=== PATIENT | male | born 1950 | race Two or more races ===

== ENCOUNTER 2022-11-19 10:00 | Observation (INO) | payer OTHER, MEDICARE ==
[2022-11-15 09:37] LABS: Absolute Lymphocytes (CBC) 1.9 K/uL (0.7-4.9); Hematocrit 38.1 % (39.6-49.0); Lymphocytes % 37.2 % (15.3-44.8); MCV 88.6 fL (80-100); MPV 9.4 fL (7.6-11.3)
[2022-11-15 09:43] LABS: Protime INR 0.91
[2022-11-15 09:57] LABS: Specific Gravity 1.026 (1.005-1.030); Urine Bilirubin NEGATIVE (Negative); Urine Blood Negative (Negative); Urine Clarity Clear (Clear); Urine Color Light-Yellow (Yellow); Urine Glucose NEGATIVE (Negative); Urine Protein NEGATIVE (Negative); Urine Urobilinogen Normal (Normal); Urine pH 6.5 (5.0-7.0)
[2022-11-15 10:09] LABS: Albumin 4.1 g/dL (3.4-5.0); Bilirubin Total 0.4 mg/dL (0.2-1.0); Potassium 4.4 mmol/L (3.5-5.1); Protein, Total 7.6 g/dL (6.4-8.2)
[2022-11-18 14:02] LABS: SARS-CoV-2 Antigen Rapid Res Negative (Negative)
[2022-11-19] MEDS ORDERED: CEFAZOLIN SODIUM 2 GM/VIAL ONE (10:41)
[2022-11-19] MEDS ORDERED: CELECOXIB 100 MG CAPSULE ONE (10:41)
[2022-11-19] MEDS ORDERED: Oxycodone HCl/Acetaminophen 1 TAB TAB ONE (10:42)
[2022-11-19] MEDS ORDERED: SCOPOLAMINE HYDROBROMIDE PATCH TD ONE (10:42)
[2022-11-19] MEDS ORDERED: GABAPENTIN 100 MG CAP ONE (10:42)
[2022-11-19] MEDS ORDERED: Ringers Lactate 1,000 ML IV ONE ×2 (10:43→16:50)
[2022-11-19] MEDS ORDERED: ACETAMINOPHEN 500 MG TAB ONE (10:43)
[2022-11-19] MEDS ORDERED: TRANEXAMIC ACID 1,000 MG/10 ML VIAL IV ONE (11:36)
[2022-11-19] MEDS ORDERED: dexAMETHasone 10 MG/ML VIAL ONE ×2 (11:42→15:29)
[2022-11-19] MEDS ORDERED: LIDOCAINE 1% MPF 5 ML VIAL ONE (11:42)
[2022-11-19] MEDS ORDERED: FENTANYL CITR 100 MCG/2 ML ONE (11:43)
[2022-11-19] MEDS ORDERED: EPINEPHRINE/PF 1 MG/ML AMP ONE ×2 (11:43→11:48)
[2022-11-19] MEDS ORDERED: MIDAZOLAM HCL 2 MG/2 ML INJ ONE (11:43)
[2022-11-19] MEDS ORDERED: BUPIVACAINE 0.25% PF 30 ML VIAL ONE (11:43)
[2022-11-19] MEDS ORDERED: HYDROMORPHONE HCL 1 MG/ML INJ ONE (12:59)
[2022-11-19] MEDS ORDERED: LIDOCAINE 2% MPF 5 ML VIAL ONE (13:56)
[2022-11-19] MEDS ORDERED: propofoL 200 MG/20 ML VIAL IV ONE (14:02)
[2022-11-19] MEDS ORDERED: KETAMINE HCL 500 MG/5 ML VIAL ONE (14:27)
[2022-11-19] MEDS ORDERED: NS 0.9% VIAL 10 ML ONE (14:40)
[2022-11-19] MEDS ORDERED: KETOROLAC 30 MG/ML INJ ONE (15:29)
[2022-11-19] MEDS ORDERED: ONDANSETRON 4 MG/2 ML VIAL ONE (15:29)
--- NOTE | 2022-11-19 16:41 | P.BOP ---
Preoperative diagnosis: left knee DJD Postoperative diagnosis: same Primary procedure: Left TKA Estimated blood loss: 100ccs Anesthesia: General Complications: None Transferred to: Recovery Room Condition: Good
[2022-11-19] MEDS ORDERED: ONDANSETRON 4 MG/2 ML VIAL IV PRN (16:42)
[2022-11-19] MEDS ORDERED: DOCUSATE NA 100 MG CAP PO PRN (16:42)
[2022-11-19] MEDS ORDERED: CEFAZOLIN 1 GM in NA CHLORIDE 0.9% 50 ML IVPB SCH (17:00)
--- OUTSIDE RECORDS SUMMARY | 2022-11-19 17:18 | XMS REPORT | Continuity of Care Document ---
:1950 Author Organization [facility] t Address [address] [place] [address] Care Team Providers Name Role Phone Fili LOZADA, Cam Primary Care Physician [phone] Junior Flor Attending Clinician Unavailable KRISTINA NUGENT Attending Clinician Unavailable MD KRISTINA NUGENT Attending Clinician Unavailable SHAMAR BONILLA Attending Clinician Unavailable KRISTINA NUGENT Admitting Clinician Unavailable MD KRISTINA NUGENT Admitting Clinician Unavailable Payers Payer Name Policy Type Policy Number Effective Date Expiration Date S ource Problems Condition Condition Condition Status Onset Resolution Last Treating Co mments Source Name Details Category Date Date Treatment Clinician Date Coronary Coronary Disease Active 2020-10 Meth[facility] di artery artery 10-16 st disease disease 00:00: [facility] involving involving [facility] coronary coronary artery artery without without angina angina pectoris pectoris Allergies, Adverse Reactions, Alerts This patient has no known allergies or adverse reactions. Social History Social Habit Start Date Stop Date Quantity Comments Source Tobacco use and 2021-08-16 2021-08-16 Smokeless tobacco [facility] exposure 00:00:00 00:00:00 non-user Hospital Sex Assigned At [birth year] [facility] Smoking Status Start Date Stop Date Source Never smoked tobacco [facility] Medications Ordered Filled Start Stop Current Ordering Indication Dosage Frequency Signature Comments Components Source Medication Medication Date Date Medication? Clinician (SIG) Name Name PARoxetine 2020-10 Yes 10mg QD Take 10 mg M ethodi (PAXIL) 10 1-[address] MG tablet 12:04: every Hospita 00 morning. l rosuvastati 2020-10 Yes 20mg QD Take 20 mg Method[facility] n (CRESTOR) 1-[address] 20 mg 12:04: daily. Hospita tablet 00 l aspirin 2020-10 Yes 81mg QD Take 81 mg Meth doc (ECOTRIN) 1-[address] 81 MG 12:04: daily. Hospita enteric 00 l coated tablet loratadine 2020-10 Yes 10mg QD Take 10 mg M ethodi (CLARITIN) [address] 10 mg 12:04: daily. Hospita tablet 00 l ticagrelor 2020-10 Yes 90mg Q.5D Take 1 Metho di (BRILINTA) 1-12 tablet (90 st 90 mg 00:00: mg total) Hospita tablet 00 by mouth 2 l (two) times a day. Immunizations Ordered Immunization Filled Immunization Date Status Commen ts [facility]:00 [facility] Procedures This patient has no known procedures. Plan of Care Planned Activity Planned Date Details Comments Source Future Scheduled 2022-11-03 Hepatitis C screening [facility] Test 07:37:01 (procedure) [code = 764863377] Future Scheduled 2022-11-03 COLONOSCOPY SCREENING [facility] Test 07:37:01 [code = COLONOSCOPY SCREENING] Future Scheduled 2022-11-03 SHINGLES VACCINES (1 [facility] Test 07:37:01 of 2) [code = SHINGLES VACCINES (1 of 2)] Future Scheduled 2022-11-03 65+ [facility]OCOCCAL [facility] 07:37:01 VACCINE (1 - PCV) [code = 65+ PNEUMOCOCCAL VACCINE (1 - PCV)] Future Scheduled 2022-11-03 COVID-19 VACCINE (4 - [facility] Test 07:37:01 Booster for Moderna series) [code = COVID-19 VACCINE (4 - Booster for Moderna series)] Future Scheduled 2022-11-03 INFLUENZA VACCINE [facility] Test 07:37:01 [code = INFLUENZA VACCINE] Encounters Start End Encounter Admission Attending Care Care Encounter Source Date/Time Date/Time Type Type Clinicians Facility Department ID 2021-10-10 2021-10-10 Outpatient Elective [place], [facility] [id number] [facility] 17:46:00 17:46:00 Junior 83 2021-08-16 2021-08-17 Outpatient KRISTINA NUGENT [facility] [id number] [place] 00:00:00 00:00:[address] 2021-08-14 2021-08-14 Outpatient KRISTINA NUGNET [facility] [id number] [place] 00:00:00 00:00:[address] 2021-08-08 2021-08-08 Outpatient CHAD, [facility] [id number] [place] 00:00:00 00:00:00 NADIM [address] 2021-08-08 2021-08-08 Outpatient CHAD, [facility] [id number] [place] 00:00:00 00:00:[address] NADIM [address] Results Test Description Test Time Test Comments Results Result Comments Source SARS-CoV-2 (COVID-19) RNA [Presence] in Respiratory sp ecimen by 2021-08-14 20:20:30 ALEX with probe detection Test Item Value Reference Range Interpretation Comme nts SARS-CoV-2 (COVID-19) RNA [Presence] in Respiratory Not detected No t-Detected specimen by ALEX with probe detection (test code = 29712-4) Whether patient is employed in a healthcare setting (test code = 52398-1) Whether the patient has symptoms related to condition of interest (test code = 56060-1) Patient was hospitalized because of this condition (test code = 84124-8) Whether the patient was admitted to intensive care unit (ICU) for condition of interest (test code = 97267-8) Whether patient resides in a congregate care setting (test code = 88911-6) MEREDITH LOGAN
[2022-11-19 17:48] VITALS: O2SAT 98
--- NOTE | 2022-11-19 17:53 | OP ---
Date of Procedure: 11/19/2022 Surgeon: Kranthi Corona MD Preoperative Diagnosis: Severe left knee arthritis. Postoperative Diagnosis: Severe left knee arthritis. Procedure: Left total knee arthroplasty using the Biomet Vanguard system. Estimated Blood Loss: 100 cc. Complications: There were no complications. Indications For Operation: Mr. Balderas is a patient, who has previously undergone arthroscopy with evidence of arthritis as well as other arthritic treatments and x-rays do demonstrate arthritic haywood es, which appeared to be [id number] on the medial aspect. He says that he understands everything a s presented at this time and opts for total knee arthroplasty. Risks, benefits, and alternatives of procedure have been discussed with him. Description Of Procedure: The patient was taken to the operating room and placed in supine position. General anesthesia was easily obtained by Anesthesia staff. Following this, a well-padded tourniqu et was placed on the superior left thigh. Left lower extremity was then prepped and draped in the [facility] sterile fashion for the procedure. The leg was then elevated and gently exsanguinated with an Ac e wrap and the tourniquet was raised. A standard anterior incision was taken down carefully through the skin and soft tissue. Meticulous hemostasis being maintained using Bovie electrocautery. The ap propriate layers easily identified and the extensor mechanism was exposed. A paula was made to the calvillo perior medial pole of patella and a standard medial parapatellar arthrotomy was then performed with l iberation approximately 60 cc of rather normal-appearing synovial fluid. Following this, the anterio r and posterior cruciate as well as the medial and lateral menisci are excised as well as some fat pa d to allow for visualization. An intramedullary guide was then placed and the distal femur was cut. After this, it was then sized to a size 72.5. This 72.5 cutting block was then placed. The remaind er of the femoral cuts were performed. There was found to be no notching of the femur and appeared t o be appropriately sized. After this, attention was then turned to the tibia and was cut in standard fashion with a normal degree of slope. After this, the femur was then placed with the trial tibial tray and this comes to full extension and appears to be balanced in flexion and extension. The miller la was then calipered and cut and drilled for placement of the patella and a trial patella was then p laced. The knee was brought through full range of motion and appears to glide very easily with no si gn of subluxation of the patella. After this, the trial implants were removed and the box was then c ut in a standard fashion for the PS component. After this had been performed, a bone plug was placed and the tibia was punched and prepared for final implantation. The final patella, femur and tibia w ere then placed using the trial polyethylene with removal of any unsupported cement and appeared to b e well placed. After these were allowed to harden, any unsupported cement was removed. The wound wa s copiously irrigated and tracking of the patella was again tried and appears to track normally. It appears to be well balanced in flexion and extension and the trial polyethylene was removed and repla ernesto with the final polyethylene with a locking bar. The wound was copiously irrigated and the fascia was closed in a watertight fashion using heavy Ethibond sutures. It was again irrigated and the ski n was closed using 2-0 Vicryl sutures followed by kayden. The patient was then placed in a well-pad ded sterile dressing, awakened, and taken to the recovery room. SENTHIL Voice ID: [id number] Report ID: [id number]
--- NOTE | 2022-11-19 18:32 | P.CNS ---
Date of Consult: 11/19/22 Reason for Consult: Medical management Requesting Physician: Kranthi Corona Chief Complaint: Left knee pain History of Present Illness: 72-year-old male with history of CAD with previous stent placement, macular degeneration, arthritis of left knee was admitted to the hospital under observation after left total knee replacement, hospital service consulted for medical management. Allergies No Known Allergies Allergy (Verified 11/19/22 11:28) Home Medications: Aspirin [Low Dose Aspirin EC] 81 mg PO DAILY 11/15/22 Loratadine [Claritin] 10 mg PO DAILY 11/15/22 PARoxetine HCL [Paxil] 10 mg PO DAILY 11/15/22 Rosuvastatin Calcium 20 mg PO DAILY 11/15/22 Ticagrelor [Brilinta] 90 mg PO BID 11/15/22 Vit C/E/Zn/Coppr/Lutein/Zeaxan [Preservision Areds 2 Softgel] 1 each PO BID 11/15/22 - Past Medical/Surgical History Diabetic: No -: coronary artery disease -: macular degeneration -: arthritis -: removal basal cell carcinoma -: left knee arthroscopy Psychosocial/ Personal History: Patient lives at home with his - Family History Father Medical History: Heart disease, Hypertension, Other (see notes) Notes: from heart attack Mother Medical History: Hypertension, Other (see notes) Notes: high cholesterol - Social History Alcohol use: Yes CD- Drugs: No Caffeine use: Yes Place of Residence: Home Review of Systems 10-point ROS is otherwise unremarkable Musculoskeletal: Other (Left lower extremity pain status post total left knee replacement today) Physical Examination Temp Pulse Resp BP Pulse Ox 97.7 F 77 16 149/79 H 11/19/22 17:46 11/19/22 17:46 11/19/22 17:46 11/19/22 17:46 General: Alert, In no apparent distress, Oriented x3 HEENT: Atraumatic, PERRLA, Mucous membr. moist/pink, EOMI, Sclerae nonicteric Neck: Supple Respiratory: Normal air movement Cardiovascular: No edema Capillary refill: <2 Seconds Gastrointestinal: Normal bowel sounds, Non-distended Musculoskeletal: No tenderness Integumentary: No rashes Neurological: Normal speech, Normal tone, Normal affect Conclusions/Impression: Assessment: Left knee arthritis status post left total knee replacement CAD with previous stent Macular degeneration Plan: Left knee arthritis status post left total knee replacement Management per Ortho. Patient recovering well at this time, alert eating dinner. Reports mild pain left lower extremity. Neurovascularly intact. As needed pain medication ordered. CAD with previous stent Patient was taking aspirin, Plavix prior to procedure. Orthopedics plan on discharging on Xarelto. Hold aspirin, Plavix allow Ortho to clear for antiplatelet. Follow-up with PCP. Macular degeneration Outpatient management. DVT PPX: Lovenox Code status: Full Critical Care: No Time Spent Managing Pts care (In Minutes): 25
[2022-11-19] MEDS: HYDROCODONE/APAP 7.5/325 MG TAB PO PRN (20:52)
[2022-11-19 21:39] VITALS: BMI 28.7
[2022-11-20] MEDS: CEFAZOLIN 1 GM in NA CHLORIDE 0.9% 50 ML IVPB SCH ×2 (01:00→08:30)
[2022-11-20 04:10] LABS: Hematocrit 35.2 % (39.6-49.0)
[2022-11-20] MEDS: ENOXAPARIN 30 MG/0.3 ML SQ SCH ×2 (05:58→08:23)
[2022-11-20] MEDS: HYDROCODONE/APAP 7.5/325 MG TAB PO PRN (08:28)
[2022-11-20] MEDS ORDERED: PARoxetine HCL 10 MG TAB PO SCH (09:00)
[2022-11-20] MEDS ORDERED: ROSUVASTATIN 10 MG TAB PO SCH (09:00)
[2022-11-20] MEDS ORDERED: HOME MED 1 EA UNK (Rosuvastatin Calcium [Rosuvastatin Calcium] 20 MG Tablet) PO SCH (09:00)
[2022-11-20] MEDS ORDERED: LORATADINE 10 MG TAB PO SCH (09:00)
[2022-11-20 12:20] VITALS: BP 133/68; TEMP 98.6
--- NOTE | 2022-11-20 22:14 | P.PN ---
Date of Service: 11/20/22 Subjective: doing well post-op ambulated with PT breathing comfortably pain tolerable wanting to go home ROS: A complete review of systems was performed and is negative except as mentioned above Physical Exam: Gen: NAD, AOx3 HEENT: normal conjunctiva, sclera anicteric CV: regular rate & rhythm, no edema Pulm: non-labored respirations, clear bilaterally MSK:L knee with mild discomfort Skin: dressing c/d/i Neuro: normal speech, normal affect, moves all extremities vitals reviewed Problem List Left knee arthritis status post left total knee replacement CAD with previous stent Macular degeneration s/p total knee replacement by Dr. Corona doing well post-operatively had a drop in hgb, but repeat H/H stable. vitals stable unclear if patient's zinc plate cutter wanted brilinta + xarelto, or aspirin + xarelto for now advised aspirin +xarelto f/u with zinc plate cutter / call office today/tomorrow for further discussion
== END 2022-11-20 13:43 | disposition home or self-care (01) ==
LOC: OR 10:00 → 2ND 16:42
PROVIDERS: ADMIT Orthopaedic Surgery; ATTEND Orthopaedic Surgery
PROC: 0SRD069 Replacement of Left Knee Joint with Oxidized Zirconium on Polyethylene Synthetic Substitute, Cemented, Open Approach (ICD-10-PCS; principal; 2022-11-19 12:00)
DX: M17.12 Unilateral primary osteoarthritis, left knee (principal); I25.10 Atherosclerotic heart disease of native coronary artery without angina pectoris; Z20.822 Contact with and (suspected) exposure to COVID-19
CPT/HCPCS: 85025; 36415 ×3; 86900; 86850; 85610; 86901; 88305; 88311; 85730; 85018; 85014; 81003; 80053; 97110; 97116; 97161; 97530; 87811; 27447; J2704; J0171 ×2; J2001 ×2; J1650 ×2; J2250; J3010; J1100 ×2; A4216; J1170; J7120 ×2; J2405; J0690 ×2; G0378; G0379

== ENCOUNTER → 2023-10-29 | Emergency (ER) | payer OTHER, MEDICARE ==
[~2023-10-29] MED LIST: DIAZEPAM 10 MG/2 ML INJ SYRINGE ONE; METOCLOPRAMIDE 10 MG/2mL INJ ONE; NA CHLORIDE 0.9% 1,000 ML ONE; ONDANSETRON 4 MG/2 ML VIAL ONE
[2023-10-29 20:46] LABS: Absolute Lymphocytes (CBC) 2.8 K/uL (0.7-4.9); Hematocrit 32.2 % (39.6-49.0); Lymphocytes % 38.4 % (15.3-44.8); MCV 76.2 fL (80-100); MPV 8.7 fL (7.6-11.3); Platelets 281 thou/uL (152-406); RBC Red Blood Cell Count 4.23 M/uL (4.33-5.43)
[2023-10-29 20:49] LABS: Protime INR 1.07
[2023-10-29 20:56] LABS: SARS-CoV-2 Antigen Rapid Res Negative (Negative)
[2023-10-29 20:59] LABS: ALT/SGPT 28 U/L (16-61); AST/SGOT 17 U/L (15-37); Albumin 4.1 g/dL (3.4-5.0); Alkaline Phosphatase 52 U/L (45-117); BUN Blood Urea Nitrogen 23 mg/dL (7-18); Bicarbonate 23 mEq/L (21-32); Bilirubin Direct 0.1 mg/dL (0-0.2); Bilirubin Indirect, Calculated 0.3 mg/dL (0.2-0.8); Bilirubin Total 0.4 mg/dL (0.2-1.0); Glomerular Filtration Rate 62 ml/min (=/>90); Glucose Level 158 mg/dL (74-106); Lipase 29 U/L (13-75); Magnesium 2.2 mg/dL (1.6-2.4); NT PRO-BNP 74 pg/mL (<125); Potassium 4.1 mEq/L (3.5-5.1); Protein, Total 7.7 g/dL (6.4-8.2); Sodium Level 137 mEq/L (136-145); Troponin High Sensitivity 3.7 pg/mL (<58.9)
--- NOTE | 2023-10-29 21:06 | RAD REPORT ---
EXAM DESCRIPTION: RAD - Chest Single View - 10/29/2023 9:00 pm CLINICAL HISTORY: CHEST PAIN Chest pain. COMPARISON: Chest Pa And Lat (2 Views) dated 10/08/2023; Chest Pa And Lat (2 Views) dated 10/24/2022 FINDINGS: Portable technique limits examination quality. The lungs are grossly clear. The heart is normal in size. No displaced fractures. IMPRESSION: No acute intrathoracic process suspected.
[2023-10-29 21:08] LABS: C-Reactive Protein < 2.90 mg/L (<3.00)
--- NOTE | 2023-10-29 21:28 | RAD REPORT ---
EXAM DESCRIPTION: CT - Head Brain Wo Cont - 10/29/2023 9:22 pm CLINICAL HISTORY: DIZZINESS Headache, drowsiness, dizziness, vomiting COMPARISON: No comparisons TECHNIQUE: All CT scans are performed using dose optimization technique as appropriate and may inclu de automated exposure control or mA/KV adjustment according to patient size. FINDINGS: No intracranial hemorrhage, hydrocephalus or extra-axial fluid collection.Mild generalized brain atrophy.No areas of brain edema or evidence of midline shift. The paranasal sinuses and mastoids are clear. The calvarium is intact. IMPRESSION: No acute intracranial abnormality.
--- NOTE | 2023-10-30 00:11 | EDPHYS ---
Physician Documentation [facility] Name: Rubio Balderas Age: 73 yrs Sex: Male : 1950 Arrival Date: 10/29/2023 Time: 20:09 Bed 4 Private MD: ED Physician Ernesto Mcclain HPI: 10/29 20:15 This 73 yrs old [place] Male presents to ER via Unassigned with complaints of sp4 Dizziness and vomiting . 10/30 00:04 Very pleasant 73-year-old male presents with acute onset of vomiting and dizziness over sp4 the vertigo starting 3 days ago. The vomiting has intensified. Patient denied any chest pain or shortness of breath. . Historical: - Allergies: 10/29 20:18 No Known Allergies; vc1 - PSHx: 20:18 cardiac stent; vc1 - Immunization history:: Adult Immunizations unknown. - Social history:: Smoking status: unknown. - Family history:: not pertinent. ROS: 10/30 00:04 Constitutional: Negative for fever, chills, and weight loss, positive for nausea, sp4 vomiting, dizziness, vertigo All other systems are negative, Exam: 00:04 Constitutional: This is a well developed, well nourished patient who is awake, alert, sp4 and acutely vomiting on arrival. There is bilateral horizontal nystagmus Head/Face: Normocephalic, atraumatic. Eyes: Pupils equal round and reactive to light, extra-ocular motions intact. Lids and lashes normal. Conjunctiva and sclera are not injected. Cornea within normal limits. Periorbital areas with no swelling, redness, or edema. Positive horizontal nystagmus ENT: Nares patent. No nasal discharge, no septal abnormalities noted. Tympanic membranes are normal and external auditory canals are clear. Oropharynx with no redness, swelling, or masses, exudates, or evidence of obstruction, uvula midline. Mucous membranes moist. Neck: Trachea midline, no thyromegaly or masses palpated, and no cervical lymphadenopathy. Supple, full range of motion without nuchal rigidity, or vertebral point tenderness. Chest/axilla: Normal chest wall appearance and motion. Nontender with no deformity. No lesions are appreciated. Cardiovascular: Regular rate and rhythm with a normal S1 and S2. No gallops, murmurs, or rubs. Normal PMI, no JVD. No pulse deficits. Respiratory: Lungs have equal breath sounds bilaterally, clear to auscultation and percussion. No rales, rhonchi or wheezes noted. No increased work of breathing, no retractions or nasal flaring. Abdomen/GI: Soft, non-tender, with normal bowel sounds. No distension or tympany. No guarding or rebound. No evidence of tenderness throughout. Back: No spinal tenderness. No costovertebral tenderness. Skin: Warm, dry with normal turgor. Normal color with no rashes, no lesions, and no evidence of cellulitis. MS/ Extremity: Pulses equal, no cyanosis. Neurovascular intact. Full, normal range of motion. Neuro: Awake and alert, GCS 15, oriented to person, place, time, and situation. Cranial nerves II-XII grossly intact. Motor strength 5/5 in all extremities. Sensory grossly intact. Psych: Awake, alert, with orientation to person, place and time. Behavior, mood, and affect are within normal limits 00:09 ECG was reviewed by the Attending Physician. EKG time 2018 Vital Signs: 10/29 20:16 BP 171 / 89; Pulse 79; Resp 15; Temp 98.1; Pulse Ox 98% ; Weight 98.43 kg; Height 6 ft. vc1 1 in. ; Pain 0/10; 21:00 BP 148 / 84; Pulse 74; Resp 14; Pulse Ox 93% on R/A; tm6 22:00 BP 155 / 92; Pulse 77; Resp 13; Pulse Ox 96% ; tm6 22:30 BP 150 / 88; Pulse 77; Pulse Ox 97% on R/A; km8 23:00 BP 151 / 90; Pulse 68; Pulse Ox 98% on R/A; km8 23:30 BP 158 / 87; Pulse 67; Pulse Ox 97% on R/A; km8 10/30 00:00 BP 157 / 90; Pulse 68; Resp 16; Pulse Ox 99% on R/A; km8 10/29 20:16 Body Mass Index 28.63 (98.43 kg, 185.42 cm) vc1 10/29 20:16 Pain Scale: Adult vc1 MDM: 10/29 21:24 Patient medically screened. sp4 10/30 00:08 Data reviewed: vital signs, nurses notes, lab test result(s), EKG, radiologic studies. [facility] ED course: EXAM DESCRIPTION: CT - Head Brain Wo Cont - 10/29/2023 9:22 pm CLINICAL HISTORY: DIZZINESS Headache, drowsiness, dizziness, vomiting COMPARISON: No comparisons TECHNIQUE: All CT scans are performed using dose optimization technique as appropriate and may include automated exposure control or mA/KV adjustment according to patient size. FINDINGS: No intracranial hemorrhage, hydrocephalus or extra-axial fluid collection.Mild generalized brain atrophy.No areas of brain edema or evidence of midline shift. The paranasal sinuses and mastoids are clear. The calvarium is intact. IMPRESSION: No acute intracranial abnormality.. 10/29 20:16 Order name: Basic Metabolic Panel; Complete Time: 22:58 [facility] 10/29 20:16 Order name: CBC with Diff; Complete Time: 22:58 [facility] 10/29 20:16 Order name: LFT's; Complete Time: 22:58 [facility] 10/29 20:16 Order name: Magnesium; Complete Time: 22:58 [facility] 10/29 20:16 Order name: NT PRO-BNP; Complete Time: 22:58 [facility] 10/29 20:16 Order name: PT-INR; Complete Time: 22:58 [facility] 10/29 20:16 Order name: Troponin HS; Complete Time: 22:58 [facility] 10/29 20:17 Order name: CRP; Complete Time: 22:58 [facility] 10/29 20:17 Order name: Lipase; Complete Time: 22:58 [facility] 10/29 20:17 Order name: SARS RAPID; Complete Time: 22:58 [facility] 10/29 20:17 Order name: Influenza Screen (a \T\ B); Complete Time: 22:58 [facility] 10/29 22:59 Order name: Troponin High Sensitivity; Complete Time: 23:58 [facility] 10/29 20:16 Order name: XRAY Chest (1 view); Complete Time: 22:58 [facility] 10/29 20:16 Order name: CT Head Brain wo Cont; Complete Time: 22:58 [facility] 10/29 20:16 Order name: EKG; Complete Time: 20:17 [facility] 10/29 20:16 Order name: Cardiac monitoring; Complete Time: 20:35 [facility] 10/29 20:16 Order name: EKG - Nurse/Tech; Complete Time: 21:02 [facility] 10/29 20:16 Order name: IV Saline Lock; Complete Time: 20:35 sp4 10/29 20:16 Order name: Labs collected and sent; Complete Time: 20:35 sp4 10/29 20:16 Order name: O2 Per Protocol; Complete Time: 20:35 sp4 10/29 20:16 Order name: O2 Sat Monitoring; Complete Time: 20:35 sp4 EC:09 Rate is 77 beats/min. Rhythm is regular, Normal Sinus Rhythm. QRS [place] is Normal. [place] sp4 interval is normal. QRS interval is normal. QT interval is normal. No Q waves. T waves are Normal. No ST changes noted. Clinical impression: Normal ECG. Interpreted by me. Reviewed by me. Administered Medications: 10/29 20:50 Drug: NS 0.9% IV 1000 ml IV at 125 ml/hr continuous Route: IV; Rate: 125 ml/hr; Site: [facility] right antecubital; 10/30 00:30 Follow up: IV Status: Order to discontinue infusion; IV Intake: 300ml [facility] 10/29 20:50 Drug: Ondansetron IVP 8 mg IVP once; over 2 minutes Route: IVP; Site: right antecubital;[facility] 22:33 Follow up: Response: No adverse reaction [facility] 20:52 Drug: metoCLOPramide IVP 10 mg IVP once; over 1 to 2 minutes Route: IVP; Site: right nc1 antecubital; 22:33 Follow up: Response: No adverse reaction [facility] 20:54 Drug: Diazepam IVP 5 mg IVP once Route: IVP; Site: right antecubital; [facility] 22:33 Follow up: Response: No adverse reaction [facility] Disposition Summary: 10/30/23 00:11 Discharge Ordered Notes: Bed rest for 3 days

Clear liquid diet for 12 hours Location: Home sp4 Problem: new sp4 Symptoms: have improved sp4 Condition: Stable sp4 Diagnosis - Other peripheral vertigo, bilateral sp4 - Acute peripheral positional vertigo, nausea and vomiting sp4 Followup: sp4 - With: Private Physician - When: 7 - 10 days - Reason: Recheck today's complaints Discharge Instructions: - Discharge Summary Sheet sp4 - Vertigo, Bpgl-gt-[place] sp4 Forms: - Patient Portal Instructions sp4 Prescriptions: - ondansetron 4 mg Oral Tablet,disintegrating - take 1 tablet ORAL route every 6 hours PRN nausea; 30 tablet; Refills: 0, sp4 Product Selection Permitted - Valium 5 mg Oral tablet - take 1 tablet ORAL route every 8 hours As needed PRN vertigo; 20 tablet; sp4 Refills: 0, Product Selection Permitted Signatures: Dispatcher [employer] Domitila Larose RN RN vc1 Ernesto Mcclain MD MD sp4 Maura Zheng RN RN [id number] Jessi Ornelas RN [id number]
--- NOTE | 2023-10-30 00:11 | ER ---
Nurse's Notes [facility] Name: Rubio Balderas Age: 73 yrs Sex: Male : 1950 Arrival Date: 10/29/2023 Time: 20:09 Bed 4 Private MD: Diagnosis: Other peripheral vertigo, bilateral;Acute peripheral positional vertigo, nausea and vomiting Presentation: 10/29 20:16 Chief complaint: Patient states: I've been feeling dizzy for 2 days now everything is vc1 spinning and I keep vomiting. Coronavirus screen: Client denies travel out of the [place] in the last 14 days. vomiting. Client presents with at least one sign or symptom that may indicate coronavirus-19. Ebola Screen: Patient negative for fever greater than or equal to 101.5 degrees Fahrenheit, and additional compatible Ebola Virus Disease symptoms Patient denies exposure to infectious person. Patient denies travel to an Ebola-affected area in the 21 days before illness onset. No symptoms or risks identified at this time. Initial Sepsis Screen: Does the patient meet any 2 criteria? No. Patient's initial sepsis screen is negative. Does the patient have a suspected source of infection? No. Patient's initial sepsis screen is negative. Risk Assessment: Do you want to hurt yourself or someone else? Patient reports no desire to harm self or others. Onset of symptoms was October 27, 2023. 20:16 Method Of Arrival: Wheelchair vc1 20:16 Acuity: FIE 3 vc1 Triage Assessment: 20:18 General: Appears distressed, ill, Behavior is cooperative. Pain: Denies pain. EENT: No vc1 deficits noted. No signs and/or symptoms were reported regarding the EENT system. Neuro: Yepez Agitation-Sedation Scale (RASS): 0 - Alert and Calm Level of Consciousness is awake, alert, obeys commands, lethargic, Oriented to person, place, time, situation, Appropriate for age Moves all extremities. Gait is steady, Reports dizziness. Cardiovascular: Reports diaphoresis, lightheadedness, nausea, vomiting. Respiratory: Airway is patent Respiratory effort is even, unlabored, Respiratory pattern is regular, symmetrical. GI: Pt is actively vomiting undigested food, Reports nausea, vomiting. : No deficits noted. No signs and/or symptoms were reported regarding the genitourinary system. Derm: Skin is diaphoretic, Skin temperature is cool. Musculoskeletal: No deficits noted. No signs and/or symptoms reported regarding the musculoskeletal system. Historical: - Allergies: 20:18 No Known Allergies; vc1 - PSHx: 20:18 cardiac stent; vc1 - Immunization history:: Adult Immunizations unknown. - Social history:: Smoking status: unknown. - Family history:: not pertinent. Screenin:25 Abuse screen: Denies threats or abuse. Nutritional screening: No deficits noted. vc1 Tuberculosis screening: No symptoms or risk factors identified. 20:35 [facility] ED Fall Risk Assessment (Adult) Score/Fall Risk Level 0 - 2 = Low Risk nj1 Oriented to surroundings, Maintained a safe environment, Provided non-skid footwear, Hourly rounding (assess needs \T\ fall precautionary measures) done, Used ambulatory aids as needed (educated on \T\ assisted with). Assessment: 20:30 General: Appears in no apparent distress. uncomfortable, Behavior is calm, cooperative, nj1 appropriate for age. 20:30 Pain: Denies pain. Neuro: Level of Consciousness is awake, alert, obeys commands, nj1 Oriented to person, place, time, situation. Neuro: Reports dizziness, Intermittent since Friday, worse today. Cardiovascular: Patient's skin is warm and dry. Rhythm is regular. Respiratory: Airway is patent Respiratory effort is even, unlabored. GI: Reports nausea. Derm: Skin is pale. 22:33 Reassessment: Patient appears in no apparent distress at this time. Patient and/or km8 family updated on plan of care and expected duration. Pain level reassessed. Patient is alert, oriented x 3, equal unlabored respirations, skin warm/dry/pink. Patient states symptoms have improved. Vital Signs: 20:16 BP 171 / 89; Pulse 79; Resp 15; Temp 98.1; Pulse Ox 98% ; Weight 98.43 kg; Height 6 ft. vc1 1 in. ; Pain 0/10; 21:00 BP 148 / 84; Pulse 74; Resp 14; Pulse Ox 93% on R/A; tm6 22:00 BP 155 / 92; Pulse 77; Resp 13; Pulse Ox 96% ; tm6 22:30 BP 150 / 88; Pulse 77; Pulse Ox 97% on R/A; km8 23:00 BP 151 / 90; Pulse 68; Pulse Ox 98% on R/A; 8 23:30 BP 158 / 87; Pulse 67; Pulse Ox 97% on R/A; 8 10/30 00:00 BP 157 / 90; Pulse 68; Resp 16; Pulse Ox 99% on R/A; 8 10/29 20:16 Body Mass Index 28.63 (98.43 kg, 185.42 cm) 1 10/29 20:16 Pain Scale: Adult vc1 ED Course: 10/29 20:15 Patient arrived in ED. kmf 20:15 Ernesto Mcclain MD is Attending Physician. sp4 20:18 Triage completed. vc1 20:24 Arm band placed on left wrist. vc1 20:25 Patient has correct armband on for positive identification. Bed in low position. Call vc1 light in reach. Client placed on continuous cardiac and pulse oximetry monitoring. NIBP monitoring applied. 20:30 Inserted saline lock: 20 gauge in right antecubital area, using aseptic technique. nj1 Blood collected. 20:33 Maura Zheng, RN is Primary Nurse. nj1 20:34 Provided Education on: call light, fall precautions. nj1 21:02 XRAY Chest (1 view) In Process Unspecified. EDMS 21:22 Primary Nurse role handed off by Maura Zheng RN [facility] 21:22 Jessi Ornelas, RAMBO is Primary Nurse. km8 21:24 CT Head Brain wo Cont In Process Unspecified. EDMS 22:33 No provider procedures requiring assistance completed. [facility] 10/30 00:30 IV discontinued, intact, bleeding controlled, No redness/swelling at site. Pressure [facility] dressing applied. Administered Medications: 10/29 20:50 Drug: NS 0.9% IV 1000 ml IV at 125 ml/hr continuous Route: IV; Rate: 125 ml/hr; Site: nj right antecubital; 10/30 00:30 Follow up: IV Status: Order to discontinue infusion; IV Intake: 300ml [facility] 10/29 20:50 Drug: Ondansetron IVP 8 mg IVP once; over 2 minutes Route: IVP; Site: right antecubital;[facility] 22:33 Follow up: Response: No adverse reaction [facility] 20:52 Drug: metoCLOPramide IVP 10 mg IVP once; over 1 to 2 minutes Route: IVP; Site: right nj1 antecubital; 22:33 Follow up: Response: No adverse reaction km8 20:54 Drug: Diazepam IVP 5 mg IVP once Route: IVP; Site: right antecubital; nj1 22:33 Follow up: Response: No adverse reaction km8 Medication: 20:26 VIS not applicable for this client. vc1 Intake: 10/30 00:30 IV: 300ml; Total: 300ml. km8 Outcome: 00:11 Discharge ordered by . shirin 00:30 Discharged to home via wheelchair, with significant other, km8 00:30 Condition: good 00:30 Discharge instructions given to patient, significant other, Instructed on discharge instructions, follow up and referral plans. medication usage, Demonstrated understanding of instructions, follow-up care, medications, Prescriptions given X 2, 00:31 Patient left the ED. km8 Signatures: Dispatcher [employer] EDMS Domitila Thomson RN RN vc1 Ernesto Mcclain MD MD sp4 Maura Zheng RN RN nj1 Estefania Ortiz [facility] Jessi Ornelas RN RN km8 Mally Mason RN RN tm6 Corrections: (The following items were deleted from the chart) 00:31 00:30 Discharge instructions given to patient, significant other, Instructed on km8 discharge instructions, follow up and referral plans. medication usage, Demonstrated understanding of instructions, follow-up care, medications, Prescriptions given X 3, km8
[2023-10-30 03:24] VITALS: TEMP 98.1
[2023-10-30 03:36] VITALS: BP 157/90; O2SAT 99
--- NOTE | 2023-10-30 16:26 | EKG ---
Test Date: 2023-10-29 Test Time: 20:19:21 Health Professional: [place] MEASUREMENT RESULTS: Intervals: Rate: 77 OK: 204 QRSD: 88 QT: 398 QTc: 450 [place]: P: 46 OK: 204 QRS: 0 T: 28 INTERPRETIVE STATEMENTS: Normal sinus rhythm Normal ECG No previous ECG available for comparison Electronically Signed On 10-30-23 16:25:11 CONTROL OFFICER MANAGER by Mahin Mccauley
== END ==
LOC: ER 20:09
DX: H81.393 Other peripheral vertigo, bilateral (principal); Z95.818 Presence of other cardiac implants and grafts; Z11.52 Encounter for screening for COVID-19
CPT/HCPCS: 93005; 85025; 80048; 36415; 83735; 85610; 80076; 84484 ×2; 83690; 83880; 86140; 87804 ×2; 70450; 71045; 87811; J2765; J3360; J2405; J7030

== ENCOUNTER 2023-12-16 08:00 | Day surgery (SDC) | payer OTHER, MEDICARE ==
[2023-12-15 13:29] LABS: Absolute Eosinophils 0.2 K/uL (0-0.5); Absolute Lymphocytes (CBC) 1.9 K/uL (0.7-4.9); Absolute Monocytes 0.5 K/uL (0.1-1.3); Absolute Neutrophil 2.6 K/uL (1.8-8.0); Eosinophils % 3.3 % (0-4.4); Hematocrit 32.9 % (39.6-49.0); Hemoglobin 10.6 g/dL (13.6-17.9); Lymphocytes % 36.9 % (15.3-44.8); MCH 24.5 pg (27.0-35.0); MCHC 32.3 g/dL (32.0-36.0); MCV 75.7 fL (80-100); MPV 8.7 fL (7.6-11.3); Monocytes % 9.5 % (3.3-12.3); Neutrophils % 49.3 % (41.7-73.7); Platelets 301 thou/uL (152-406); RBC Red Blood Cell Count 4.35 M/uL (4.33-5.43); Red Cell Distribution Width 19.4 % (12.1-15.2)
[2023-12-15 13:34] LABS: PT Prothrombin Time 11.5 SECONDS (9.5-12.5); PTT, Activated Partial Thromb 32.2 SECONDS (24.3-36.9); Protime INR 1.05
[2023-12-15 13:43] LABS: Anion Gap 9.3 mEq/L (5.0-15.0); Potassium 4.3 mEq/L (3.5-5.1)
[2023-12-16] MEDS: NA CHLORIDE 0.9% 500 ML ONE (08:34)
[2023-12-16] MEDS ORDERED: LIDOCAINE 1% 20 ML MDV ONE (09:06)
[2023-12-16] MEDS ORDERED: VERAPAMIL HCL 10 MG/4 ML VIAL IV ONE (09:06)
[2023-12-16] MEDS ORDERED: HEPA 1000U/500MLS 2,000 UNIT/1,000 ML BAG IV ONE (09:06)
[2023-12-16] MEDS ORDERED: HEPARIN 5000 UNIT/ML 1 ML VIAL ONE (09:07)
[2023-12-16] MEDS ORDERED: FENTANYL CITR 100 MCG/2 ML ONE (10:31)
[2023-12-16] MEDS ORDERED: MIDAZOLAM HCL 2 MG/2 ML INJ ONE (10:31)
[2023-12-16] MEDS ORDERED: HEPARIN 10,000 UNIT/10 ML VIAL IV ONE (10:58)
[2023-12-16 11:45] VITALS: TEMP 97.2
[2023-12-16 18:04] VITALS: BP 128/66; O2SAT 100
== END 2023-12-16 13:57 | disposition home or self-care (01) ==
LOC: CCL 08:00
PROVIDERS: ATTEND Internal Medicine Interventional Cardiology
DX: I25.10 Atherosclerotic heart disease of native coronary artery without angina pectoris (principal); I10 Essential (primary) hypertension; Z95.5 Presence of coronary angioplasty implant and graft; Z82.49 Family history of ischemic heart disease and other diseases of the circulatory system
CPT/HCPCS: 85025; 80048; 36415; 83721; 85610; 85730; 93458; 76937; C1893; Q9966; J1644; J2001; J2250; J3010; J7040; 99152; 99153

== ENCOUNTER 2025-07-05 05:10 | Day surgery (SDC) | payer OTHER, MEDICARE ==
[2025-06-30 10:00] LABS: Absolute Lymphocytes (CBC) 1.7 K/uL (0.7-4.9); Hematocrit 41.1 % (39.6-49.0); Hemoglobin 14.2 g/dL (13.6-17.9); MCH 34.8 pg (27.0-35.0); MCHC 34.6 g/dL (32.0-36.0); MCV 100.6 fL (80-100); MPV 9.1 fL (7.6-11.3); Nucleated RBC Absolute Count 0.0 (0-0); Nucleated Red Blood Cells % 0.1 % (0-0); RBC Red Blood Cell Count 4.09 M/uL (4.33-5.43); White Blood Count 5.20 thou/uL (4.3-10.9)
[2025-06-30 10:07] LABS: Sqamous Epithelial <5 /HPF (None Seen); Urine Micro Reflex YN NO BILL MICROSCOPIC
[2025-06-30 10:13] LABS: PT Prothrombin Time 12.0 SECONDS (10-13.0); Protime INR 1.06
[2025-06-30 10:14] LABS: PTT, Activated Partial Thromb 31.5 SECONDS (27.2-37.4)
[2025-06-30 10:21] LABS: ALT/SGPT 27.0 U/L (16-61); AST/SGOT 16.0 U/L (15-37); Albumin 3.6 g/dL (3.4-5.0); Albumin/Globulin Ratio 1.0 (1.1-1.8); Alkaline Phosphatase 49.0 U/L (45-117); Anion Gap 6.1 mEq/L (5.0-15.0); BUN Blood Urea Nitrogen 24.0 mg/dL (7-18); Globulin 3.6 g/dL (2.3-3.5); Glucose Level 92.0 mg/dL (74-106); Potassium 4.1 mEq/L (3.5-5.1)
[2025-07-05] MEDS: Ringers Lactate 1,000 ML IV ONE (05:43)
[2025-07-05] MEDS: ACETAMINOPHEN 500 MG TAB ONE (05:49)
[2025-07-05] MEDS: GABAPENTIN 100 MG CAP ONE (05:49)
[2025-07-05] MEDS: Oxycodone HCl/Acetaminophen 5/325 MG TAB ONE (05:52)
[2025-07-05] MEDS: CELECOXIB 100 MG CAPSULE ONE (05:52)
[2025-07-05] MEDS: TRANEXAMIC ACID 1,000 MG/10 ML VIAL IV ONE (06:19)
[2025-07-05] MEDS: LIDOCAINE 1% MPF 5 ML VIAL ONE ×2 (06:20→06:34)
[2025-07-05] MEDS: BUPIVACAINE 0.25% PF 30 ML VIAL ONE ×2 (06:20→06:34)
[2025-07-05] MEDS: MIDAZOLAM HCL 2 MG/2 ML INJ ONE ×2 (06:21→06:33)
[2025-07-05] MEDS: FENTANYL CITR 100 MCG/2 ML ONE ×2 (06:21→06:33)
[2025-07-05] MEDS: EPINEPHRINE 1 MG/ML VIAL ONE ×2 (06:22→06:33)
[2025-07-05] MEDS: LIDOCAINE 2% MPF 5 ML VIAL ONE (06:33)
[2025-07-05] MEDS: DEXMEDETOMIDINE HCL 200 MCG/2 ML VIAL ONE (06:33)
[2025-07-05] MEDS: MAGNESIUM SULFATE 1 gm IVPB 1 GM/100 ML BAG IV ONE (06:34)
[2025-07-05] MEDS ORDERED: EPHEDRINE SULF 50 MG/ML VIAL ONE (07:12)
[2025-07-05] MEDS: CEFAZOLIN SODIUM 2 GM/VIAL ONE (07:12)
[2025-07-05] MEDS ORDERED: KETAMINE HCL IN 0.9 % NACL 50 MG/5 ML SYRINGE IV ONE (07:17)
[2025-07-05] MEDS ORDERED: GLYCOPYRROLATE 0.2 MG/ML SYR ONE (07:17)
[2025-07-05] MEDS ORDERED: ONDANSETRON 4 MG/2 ML VIAL IV PRN (09:30)
--- NOTE | 2025-07-05 09:30 | P.BOP ---
Preoperative diagnosis: right knee arthritis Postoperative diagnosis: same Primary procedure: right total knee arthoplasty Estimated blood loss: 100ccs Anesthesia: General Complications: None Transferred to: Recovery Room Condition: Good
[2025-07-05] MEDS: HYDROMORPHONE HCL 0.5 MG/0.5 ML INJ ONE (10:28)
[2025-07-05 10:54] VITALS: BMI 30.4
--- NOTE | 2025-07-05 11:28 | P.CNS ---
Date of Consult: 07/05/25 Reason for Consult: Medical management Requesting Physician: Krantih Corona Chief Complaint: Right knee pain History of Present Illness: 75-year-old male with history of hypertension, hyperlipidemia, CAD presented to the hospital for outpatient right total knee replacement. He is status post right total knee replacement today on 07/05 and doing well postoperatively. Hospitalist team is been consulted for management of his medical conditions during his hospitalization. Allergies No Known Allergies Allergy (Verified 07/05/25 05:37) Home Medications: Aspirin [Low Dose Aspirin EC] 81 mg PO DAILY 11/15/22 PARoxetine HCL [Paxil] 10 mg PO DAILY 11/15/22 Rosuvastatin Calcium 20 mg PO DAILY 11/15/22 Bacillus Coagulans/Inulin [Align Dualbiotic Gummy] 1 each PO DAILY 06/30/25 Carvedilol [Coreg] 3.125 mg PO BID 06/30/25 Ferrous Gluconate [Iron] 65 mg PO SEECOM 06/30/25 Loratadine [Claritin] 10 mg PO DAILY 06/30/25 Vit B2/Niacin/B6/B12/Dexpanth [B Complex Sublingual Liquid] 1 drop PO DAILY 06/30/25 Vit C/E/Zn/Coppr/Lutein/Zeaxan [Preservision Areds 2 Chew Tab] 1 each PO BID 06/30/25 - Past Medical/Surgical History Diabetic: No -: high cholesterol -: hypertension -: arthritis -: left total knee -: heart stent Psychosocial/ Personal History: Patient lives at home with his - Family History Father Medical History: Heart disease, Hypertension, Other (see notes) Notes: from heart attack Mother Medical History: Hypertension, Other (see notes) Notes: high cholesterol - Social History Smoking Status: Unknown if ever smoked Alcohol use: Yes CD- Drugs: No Caffeine use: Yes Place of Residence: Home Review of Systems 10-point ROS is otherwise unremarkable Musculoskeletal: Leg Pain (Right knee pain) Physical Examination Temp Pulse Resp BP Pulse Ox 97.2 F 77 16 142/85 H 07/05/25 10:38 07/05/25 10:38 07/05/25 10:38 07/05/25 10:38 General: Alert, In no apparent distress, Oriented x3 HEENT: Atraumatic, PERRLA, EOMI Neck: Supple, 2+ carotid pulse no bruit, No LAD Respiratory: Clear to auscultation bilaterally, Normal air movement Cardiovascular: Regular rate/rhythm, Normal S1 S2 Gastrointestinal: Normal bowel sounds, No tenderness Musculoskeletal: Other (Right knee dressing in place) Integumentary: No rashes Neurological: Normal gait, Normal speech, Normal affect Conclusions/Impression: Assessment: Right knee arthritis status post total right knee replacement 07/05 History of CAD Hypertension Hyperlipidemia Plan: Right knee arthritis status post total right knee replacement 07/05 As needed pain medications PT per Ortho History of CAD Hypertension Hyperlipidemia Continue home medications when verified DVT PPX:Per ortho Code status: Full code Critical Care: No Time Spent Managing Pts care (In Minutes): 45
--- NOTE | 2025-07-05 14:30 | OP ---
Date of Procedure: 07/05/2025 Surgeon: Kranthi Corona MD Preoperative Diagnosis: Right knee arthritis. Postoperative Diagnosis: Right knee arthritis. Procedure: Right total knee arthroplasty using the Persona System by [employer]. Estimated Blood Loss: 100 cc. Complications: There were no complications. Specimen: Pathology specimens sent are from bony fragments. Indications For Operation: Mr. Balderas is a 75-year-old gentleman who has previously had a left tot al knee arthroplasty done by me and has done well. He has pain in his right knee, which is unrelieve d with conservative measures including injection, medications, activity modifications, and opts for t otal knee arthroplasty. Risks, benefits, and alternatives of procedure had been discussed with him a nd he states he understands things as presented and wishes to proceed. Description Of Procedure: The patient was given a block in the holding area and then he was taken to the operating room, where general anesthesia was easily obtained by the Anesthesia staff. Following this, a well-padded tourniquet was placed on superior right thigh. Right lower extremity was then p repped and draped in the usual sterile fashion for the procedure. The leg was then elevated and gent ly exsanguinated using an Eloy wrap. The knee was bent. Tourniquet was raised. A standard anterior incision was then taken down carefully through skin and soft tissues. Meticulous hemostasis being ma intained using Bovie electrocautery. This leads down to the appropriate level, which was then exploi adrien to expose the extensor mechanism. The superior and medial border of the patella was then marked and a standard medial parapatellar arthrotomy was then performed. There was removal of some fat pad as well as the medial and lateral menisci. The knee was examined. He does have [id number] changes on the medial side as well as some degenerative changes of the patella. An intramedullary alignment guide was then placed and distal femur was cut. After this was sized and the cutting block was plac ed, the remainder of the femoral cuts were made without difficulty. Attention was then turned to the tibia. The anterior and posterior cruciate ligaments had been resected and the tibia was then cut i n standard fashion. It was then measured. A trial femur was placed as well as trial tibia with size 10 poly, and the knee was brought to full extension, appears to be balanced in both flexion and exte nsion, comes to full extension and full flexion as well. The patella appears to glide well. The pat chaim was then calipered and cut and sized. The pegs were drilled and trial patella was placed. It w as brought through full range of motion. The patella appears to glide excellently. After this, the lugs were drilled for the femur and the trial components were removed. The bony surfaces were preppe d for cementation. After this, all of the components were then cemented with the trial tibia polyeth ylene and the knee was then placed in extension while cement hardened. Care was taken to remove any unsupported cement and ensuring that these components are well seated. After this was brought throug h full range of motion, the patella appeared to glide well. It appeared to be stable in both varus a nd valgus and balanced in both flexion and extension. Decision was made to continue with a size 10 f inal polyethylene. The wound was irrigated and the final polyethylene was placed and locked carefull y in place. After this was again irrigated and brought through full range of motion, patella appears to glide well, appears to be balanced again. After this, the extensor mechanism was repaired in a w atertight fashion using Ethibond sutures. This was followed by closure of the skin with Vicryl follo wed by closure of the skin with kayden. The patient was placed in a well-padded sterile dressing, a wakened, and taken to recovery room in good condition. No complications. SE/MODL Voice ID: [id number] Report ID: [id number]
[2025-07-05] MEDS: CEFAZOLIN 1 GM in NA CHLORIDE 0.9% 50 ML IVPB SCH (16:56)
[2025-07-05] MEDS: ROSUVASTATIN 10 MG TAB PO SCH (21:46)
[2025-07-06] MEDS: ENOXAPARIN 30 MG/0.3 ML SQ SCH (05:42)
[2025-07-06 06:51] LABS: Hematocrit 38.7 % (39.6-49.0); Hemoglobin 13.4 g/dL (13.6-17.9)
[2025-07-06] MEDS ORDERED: HOME MED 1 EA UNK (Rosuvastatin Calcium [Rosuvastatin Calcium] 20 MG Tablet) PO SCH (09:00)
--- NOTE | 2025-07-06 09:47 | P.PN ---
Date of Service: 07/06/25 Subjective: No acute events overnight No further episodes nausea/vomiting Working well with PT, still requiring assistance ROS: 10 point ROS as noted above, otherwise negative Physical exam GEN: Alert, oriented, NAD HEENT: Normal conjunctiva, sclera anicteric CV: Regular rate and rhythm, no edema Pulm: Nonlabored respirations on room air ABD: Soft, nontender, nondistended MSK: No joint tenderness Integumentary: No rashes Neuro: Normal speech, normal affect Vitals reviewed Assessment: Right knee arthritis status post total right knee replacement 07/05 History of CAD Hypertension Hyperlipidemia Plan: Right knee arthritis status post total right knee replacement 07/05 As needed pain medications PT per Ortho Seems to doing well, and CPM at my time of evaluation this morning Seen by PT, patient would benefit with further rehab and inpatient Prior to discharge home Plan for DC to inpatient rehab will follow-up morning labs to reassess renal function/ability of CBC History of CAD Hypertension Hyperlipidemia Home medications continued DVT PPX:Per ortho Code status: Full code Time Spent Managing Pts Care (In Minutes): 35
[2025-07-06] MEDS: LORATADINE 10 MG TAB PO SCH (10:32)
[2025-07-06] MEDS: FERROUS GLUCONATE 324 MG TAB PO SCH (10:32)
[2025-07-06] MEDS: ASPIRIN EC 81 MG TAB PO SCH (10:32)
[2025-07-06] MEDS: HYDROCODONE/APAP 7.5/325 MG TAB PO PRN (12:54)
[2025-07-06] MEDS: DOCUSATE NA 100 MG CAP PO PRN (12:58)
[2025-07-06 13:29] LABS: Hematocrit 40.8 % (39.6-49.0); Hemoglobin 13.4 g/dL (13.6-17.9); MCH 33.4 pg (27.0-35.0); MCHC 32.8 g/dL (32.0-36.0); MCV 101.7 fL (80-100); MPV 9.4 fL (7.6-11.3); RBC Red Blood Cell Count 4.01 M/uL (4.33-5.43); White Blood Count 11.00 thou/uL (4.3-10.9)
[2025-07-06 13:46] LABS: Anion Gap 7.6 mEq/L (5.0-15.0); BUN Blood Urea Nitrogen 21.0 mg/dL (7-18); Glucose Level 134.0 mg/dL (74-106); Potassium 4.6 mEq/L (3.5-5.1)
[2025-07-06 20:18] VITALS: BP 135/78
[2025-07-06 20:40] VITALS: TEMP 97.8
[2025-07-06 21:36] VITALS: O2SAT 97
== END 2025-07-06 23:15 ==
LOC: OR 05:10 → 4TH 09:30 → OR 07-06 23:15
PROVIDERS: ATTEND Orthopaedic Surgery
PROC: 0SRC0J9 Replacement of Right Knee Joint with Synthetic Substitute, Cemented, Open Approach (ICD-10-PCS; principal; 2025-07-05 07:00)
DX: M17.12 Unilateral primary osteoarthritis, left knee (principal)
CPT/HCPCS: 93005; 85025; 81001; 80048; 36415 ×2; 85610; 88305; 88311; 85730; 85018; 85014; 85027; 80053; 97110; 97116 ×2; 97139; 97161; 97530; 94010 ×4; 27447; J3490; C1776 ×2; J3475; J2704; J1100 ×3; J2003 ×2; J1650 ×3; J2250; J3010; J0171 ×2; J1171; J7120; J0690 ×4; J0169

== ENCOUNTER 2025-07-06 14:08 | Inpatient (IN) | payer OTHER, MEDICARE ==
[2025-07-07 00:03] VITALS: BMI 29.0
[2025-07-07] MEDS ORDERED: ONDANSETRON 4 MG (ODT) TAB PO PRN (00:04)
[2025-07-07] MEDS ORDERED: LORATADINE 10 MG TAB PO PRN (00:04)
[2025-07-07] MEDS ORDERED: FERROUS GLUCONATE 324 MG TAB PO SCH (01:00)
[2025-07-07] MEDS: HYDROCODONE/APAP 7.5/325 MG TAB PO PRN ×2 (03:00→07:38)
[2025-07-07 03:49] LABS: Urine Microscopic Reflex YN NO UMIC
[2025-07-07 06:53] LABS: Absolute Lymphocytes (CBC) 1.6 K/uL (0.7-4.9); Hematocrit 35.0 % (39.6-49.0); Hemoglobin 12.3 g/dL (13.6-17.9); MCH 35.0 pg (27.0-35.0); MCHC 35.1 g/dL (32.0-36.0); MCV 99.7 fL (80-100); MPV 9.5 fL (7.6-11.3); Nucleated RBC Absolute Count 0.0 (0-0); Nucleated Red Blood Cells % 0.1 % (0-0); RBC Red Blood Cell Count 3.51 M/uL (4.33-5.43); White Blood Count 7.00 thou/uL (4.3-10.9)
[2025-07-07 07:16] LABS: Albumin 3.1 g/dL (3.4-5.0); Anion Gap 6.9 mEq/L (5.0-15.0); BUN Blood Urea Nitrogen 19.0 mg/dL (7-18); Glucose Level 98.0 mg/dL (74-106); Magnesium 2.2 mg/dL (1.6-2.4); Potassium 3.9 mEq/L (3.5-5.1); Prealbumin 16.6 mg/dL (20-40)
[2025-07-07] MEDS: APIXABAN 2.5 MG TABLET PO SCH (07:36)
[2025-07-07] MEDS: VITAMIN B COMPLEX 1 CAP PO SCH (07:37)
[2025-07-07] MEDS: DOCUSATE NA/SENNA CONC 1 TAB PO SCH (07:37)
[2025-07-07] MEDS: LACTOBACILLUS/ACIDOPHILUS TAB PO SCH (07:37)
[2025-07-07] MEDS: ASPIRIN EC 81 MG TAB PO SCH (07:37)
[2025-07-07] MEDS: OCUVITE (VIT A,C & E/LUTEIN/MINERAL) TABLET PO SCH (07:37)
[2025-07-07] MEDS ORDERED: ENOXAPARIN 30 MG/0.3 ML SQ SCH (08:00)
[2025-07-07] MEDS: MAGNESIUM HYDROXIDE 8% 30 ML PO PRN (21:02)
[2025-07-07] MEDS: ROSUVASTATIN 10 MG TAB PO SCH (21:03)
--- NOTE | 2025-07-08 02:32 | HP ---
Date of Admission: 07/06/2025 Time: 1:10 p.m. Chief Complaint: "I had right knee surgery. I need to get back home." History Of Present Illness: Mr. Balderas is a 75-year-old patient with a history of arthritis. He h ad progressive loss of disk joint space in the right knee and severe pain from the osteoarthritis. Isiah toro had an elective right total knee arthroplasty on 07/05/2025 due to failure to respond to the more c onservative treatment. He has had since then more significant decline in mobility and physical funct ioning. Postoperative course is complicated by anemia, constipation, persistent pain, generalized we akness. He did have renal dysfunction identified on blood work and required medication adjustment fo r pain, reduce his risk of deep vein thrombus, address episodes of hypotension, elevated white blood cell count to rule out an infection and has been on prophylaxis for DVT prevention with Lovenox. Did require stool softeners, incentive spirometry to reduce risk of pneumonia. Initially, he required u p to 10 L of oxygen and was then weaned to 2 L and then on room air. Does have significant decreased mobility, decreased physical functioning. Prior to his surgery, Mr. Balderas had been independent, mobilizing without any use of assistive olinda ce despite his progressive pain. He did require at 1 point a single prong cane during the week prior to surgery due to worsening pain. Other than that, he was active at home and able to assist with co oking maintaining his 10-acre property, driving. He does reside with his . At this point, follo wing surgery, he requires minimum assistance for [id number] transfers, contact guard for ambulation , is limited to a maximum of 15 feet. He is now referred to inpatient rehabilitation unit for intens cecy interdisciplinary physical, occupational, and speech therapy if need be along with medical manage ment by nursing daily evaluation and management and if need be the Orthopedic Surgery may be involved to help with management if there are any untoward effects following the surgery. His inpatient reha bilitation will help him reduce risk of rehospitalization, help him return to his prior level of func tioning. Past Medical History: Dyslipidemia, hypertension, arthritis, and has had the left total knee replace ment previously and cardiac stents. Allergies: NO KNOWN DRUG ALLERGIES. Medications: Eliquis 2.5 mg twice daily, aspirin 81 mg daily, Coreg 3.125 mg twice daily, Fergon 324 mg weekly, Fernley 7.5/325 every 4 hours as needed, Lactinex 1 tablet daily, Claritin 10 mg daily, Mil k of Magnesia 30 mL daily, Ocuvite 1 tablet twice daily, Zofran 4 mg daily, Paxil 10 mg daily, Cresto r 20 mg at bedtime, Senokot S 2 twice daily, and Super B Complex 1 capsule daily. Laboratory Studies: White blood cell count 7.0, hemoglobin 12.3, platelets 184. Sodium 138, potassi um 3.9, chloride is 107, carbon dioxide 28, BUN 19, creatinine 0.91, glucose 98, calcium 8.4. Magnes ium 2.2. Albumin 3.1, prealbumin 16.6. Urinalysis from 07/07/2025 is completely normal. X-ray/imaging: He will have repeat x-ray depending on how they need us. He actually does have a ___ placed in that and going closer to 85-90 degrees. Social History: Lives with . No alcohol, tobacco, or IV drug use. Family History: Noncontributory. Current Level Of Functioning: Currently, he is setup assistance for eating and grooming, moderate as sistance for bathing, set up assistance for upper body dressing, supervision to contact guard for low er body dressing, moderate assistance for toileting and transferring from wheelchair to bed and toile t, moderate assistance ambulation of 50 feet. Physical Examination: Vital Signs: Blood pressure 135/63, pulse 86, respiratory rate 18, temperature 98.4, oxygen saturati on 96%. Weight 220 pounds, height 6 feet 1 inch, BMI 29. General: Mr. Balderas is resting comfortably. He has a CPM on the right knee and denies any signifi cant pain during the time. When transferring bearing weight, pain may be up to 5 or 6. HEENT: Otherwise, he is normocephalic, atraumatic. Sclerae anicteric. Oropharynx pink and moist. Neck: Supple. Chest: Clear. Extremities: No significant edema, cyanosis, or clubbing in left lower extremity. Postoperative mil d edema in the right lower extremity. Rehab And Medical Assessment And Plan: Mr. Balderas is a 75-year-old patient admitted to the [facility] rehabilitation unit with impairment category 08, replacement of the lower extremity. The impairme nt group code is 08.61, unilateral knee replacement. Etiologic diagnosis: Right knee arthritis. Co morbidities include decreased mobility, decreased physical functioning, hypertension, dyslipidemia, a rthritis, and prior left total knee replacement and coronary artery disease, status post stent placem ent. His plan will be to have physical and occupational therapy 3 hours a day, 5 of 7 days. If spee ch is needed, it will be about half an hour daily, 5 of 7 days. Will have continuing DVT prophylaxis with Eliquis 2.5 mg twice daily; aspirin 81 mg daily; Coreg to help with his blood pressure control, 3.125 mg twice daily; Fernley 7.5/325 for pain. Continue lactobacillus for his digestion and __ function, Claritin for seasonal allergies, Milk of Magnesia for constipation, Ocuvite to continue to reduce the risk of macular degeneration. He has Zofran for nausea, Paxil for depression, Crestor for dyslipidemia, Senokot for constipation, and Super B Complex on board. Comorbidities That Are Impacting His Rehabilitation: He has arthritis. He has had a prior left knee replacement. Has now had right knee replaced. He may have significant pain, but he will have sched uled medications and multimodality approach will be used including neuromodulators, topical applicati on of analgesics, and the Fernley and Tylenol and does have hypertension, dyslipidemia. Does require e valuation and management. He has a risk of pneumonia. Incentive spirometry will be used. Risk of u rinary tract infection, urinalysis will be done. Cranberry pills 425 mg daily will be added. Rehab Specific Plan: Mr. Balderas will have physical and occupational therapy, if need be, speech th erapy as well 3-1/2 hours, 5 of 7 days and that will be to improve his ability to transfer from the b ed to a wheelchair, to a rolling walker, to get on and off the toilet, in and out of the shower, to p erform upper and lower body dressing, to don and doff footwear, and to manage activities of daily valencia ing without difficulty. If needed, speech will work on cognitive functioning as well and if there is difficulty swallowing, will be also addressed. Mr. Balderas has a good understanding of the process of admission to the inpatient rehabilitation uni t and how he will benefit from physical, occupational, and if need be speech therapy. He will have 2 4 hours a day, 7 days a week, skilled rehabilitation nursing, daily physician evaluation and manageme nt and Analyst evaluation and management for discharge planning, home equipment, and to dank nue therapy after his discharge. In addition, will have followup set up with Orthopedic Surgery. Barriers To Discharge: At this point, potential barriers may include deep vein thrombosis. He has h ad coronary artery disease. He is at risk for additional coronary artery disease issues such as myoc ardial infarction and stroke. Does have aspirin and Eliquis on board and Crestor for dyslipidemia, w hich will further reduce his risk of stroke and will continue with his pain management and with issue s that may arise such as sleep are insomnia and constipation. Length Of Stay: 10-12 days. Disposition: Expected to be home with family and continue therapy via Home Health. Prognosis: Good. Code Status: Full code. Rehab Specific Goals: 1. Become independent with upper and lower body dressing and donning and doffing footwear. 2. Independently mobilize a wheelchair 250 feet, a rolling walker 250 feet, up and down 10 steps with bilateral handrails. 3. Perform all cognitive functioning independently. 4. Perform all activities of daily living independently. The above goals were reviewed with Mr. Balderas and he is in agreement. By signing this document, I acknowledge I personally performed a full physical examination on Mr. Junior no later than 24 hours after his admission to the inpatient rehabilitation unit and determined that he is able to tolerate the above course of treatment at an intensive level for reasonable period of time. A detailed individualized plan of care for him will be completed by hospital day 4 based on the preadmission screen, history and phy sical, and therapy evaluations. GEORGE/EDWARD Voice ID: [id number]
--- NOTE | 2025-07-08 12:58 | RAD REPORT ---
EXAM: XR Abdomen 1 View (KUB) HISTORY: [facility] MAIN R/O obstruction COMPARISON: None FINDINGS: Single view of the abdomen shows a nonspecific, nonobstructive bowel gas pattern. No suspi cious calcifications are seen. The bones are unremarkable. IMPRESSION: Nonobstructive bowel gas pattern.
--- NOTE | 2025-07-08 14:06 | P.RH.PN ---
Estimated Length of Stay: 9 Expected Discharge Date: 07/12/25 Discharge Disposition Plan: Home Family Support: Yes Car Customizer Goal: Mobility, Transfers, Self Care Vital Signs: Last Vital Signs Temp 98.8 F 07/08/25 07:50 Pulse 85 07/08/25 07:50 Resp 16 07/08/25 07:50 BP 154/68 H 07/08/25 07:50 Pulse Ox 95 07/08/25 07:50 Laboratory: Laboratory Last Values WBC 7.00 thou/uL (4.3-10.9) 07/07/25 06:23 RBC 3.51 M/uL (4.33-5.43) L 07/07/25 06:23 Hgb 12.3 g/dL (13.6-17.9) L D 07/07/25 06:23 Hct 35.0 % (39.6-49.0) L 07/07/25 06:23 MCV 99.7 fL (80-100) 07/07/25 06:23 MCH 35.0 pg (27.0-35.0) 07/07/25 06:23 MCHC 35.1 g/dL (32.0-36.0) 07/07/25 06:23 RDW 13.1 % (12.1-15.2) 07/07/25 06:23 Plt Count 184 thou/uL (152-406) 07/07/25 06:23 MPV 9.5 fL (7.6-11.3) 07/07/25 06:23 Neutrophils % 65.7 % (41.7-73.7) 07/07/25 06:23 Lymphocytes % 23.6 % (15.3-44.8) 07/07/25 06:23 Monocytes % 9.8 % (3.3-12.3) 07/07/25 06:23 Eosinophils % 0.5 % (0-4.4) 07/07/25 06:23 Basophils % 0.4 % (0-1.3) 07/07/25 06:23 Absolute Neutrophils 4.6 K/uL (1.8-8.0) 07/07/25 06:23 Absolute Lymphocytes 1.6 K/uL (0.7-4.9) 07/07/25 06:23 Absolute Monocytes 0.7 K/uL (0.1-1.3) 07/07/25 06:23 Absolute Eosinophils 0.0 K/uL (0-0.5) 07/07/25 06:23 Absolute Basophils 0.0 K/uL (0-0.5) 07/07/25 06:23 Sodium 138 mEq/L (136-145) 07/07/25 06:23 Potassium 3.9 mEq/L (3.5-5.1) D 07/07/25 06:23 Chloride 107 mEq/L (98-107) 07/07/25 06:23 Carbon Dioxide 28 mEq/L (21-32) 07/07/25 06:23 Anion Gap 6.9 mEq/L (5.0-15.0) 07/07/25 06:23 BUN 19 mg/dL (7-18) H 07/07/25 06:23 Creatinine 0.91 mg/dL (0.70-1.30) 07/07/25 06:23 Est GFR (CKD-EPI) 87 ml/min (=/>90) L 07/07/25 06:23 Glucose 98 mg/dL (74-106) 07/07/25 06:23 Calcium 8.4 mg/dL (8.5-10.1) L D 07/07/25 06:23 Magnesium 2.2 mg/dL (1.6-2.4) 07/07/25 06:23 Albumin 3.1 g/dL (3.4-5.0) L 07/07/25 06:23 Prealbumin 16.6 mg/dL (20-40) L 07/07/25 06:23 Urine Color Light-yellow (Yellow) 07/07/25 02:55 Urine Clarity Clear (Clear) 07/07/25 02:55 Urine pH 5.5 (5.0-7.0) 07/07/25 02:55 Ur Specific [place] 1.029 (1.005-1.030) 07/07/25 02:55 Glucose (UA)(Auto) Negative (Negative) 07/07/25 02:55 Urine Ketones Negative (Negative) 07/07/25 02:55 Urine Blood Negative (Negative) 07/07/25 02:55 Urine Nitrite Negative (Negative) 07/07/25 02:55 Urine Bilirubin Negative (Negative) 07/07/25 02:55 Urine Urobilinogen Normal (Normal) 07/07/25 02:55 Ur Leukocyte Esterase Negative Apple/uL (Negative) 07/07/25 02:55 Urine Total Protein Negative (Negative) 07/07/25 02:55 Weight: 220 lb Negative Pressure Wound Therapy Present: No Physician Update: Labs reviewed and are stable. Moderate pain in the right knee with mildly decreased range of motion. With PT bed mobility, transfers, using control valve mechanic, toilet transfers with SBA. Up and down 3 steps with mod assist. With OT, independent lower body dressing, supervision with ADL transfers and other tasks. Constipated with negative KUB. Summary: Patient's care plan and fci goals have been reviewed and revised as necessary. Please see the Rehabilitation Signature page for all necessary s ignatures.
[2025-07-08] MEDS: POLYETHYL GLY 3350 17 GM/DOSE PO SCH (19:23)
[2025-07-09] MEDS: ACETAMINOPHEN 500 MG TAB PO PRN (19:44)
--- NOTE | 2025-07-12 01:29 | PN ---
Date of Progress Note: 07/11/2025 Time: 1:10. Subjective: Mr. Balderas is sitting on the side of the bed. Does report some swelling in the right knee where he has right knee arthroplasty for right knee arthritis. The pain is mild to moderate. W as still doing his therapy despite that. He has no additional complaints. Objective: No fevers and chills. The swelling noted in the right lower extremity and there is mild tenderness to palpation at the surgical site, but has good hemostasis of course of right knee. Other cloud, he has no complaints or deficits. Physical Examination: Vital Signs: Blood pressure 127/86, pulse 79, respiratory rate 16, temperature 98.5, oxygen saturati on 95%. General: Mr. Balderas is sitting at the side of his bed. HEENT: He is normocephalic, atraumatic. Sclerae anicteric. Oropharynx pink and moist. Neck: Supple. Extremities: Mild to moderate edema in the right lower extremity all the way up to the knee and the thigh area. Laboratory Studies: No new laboratory studies. X-ray/imaging: No new x-rays or imaging. Medications: Have been reviewed. He does have the extra-strength Tylenol on board for pain and no o ther medication changes have been noted. Progress Made With Physical, Occupational, And Speech Therapy: Today with physical therapy, he did p erform transfer from the therapy mat and was able to ambulate to his room 110 feet with a rolling wal ker with modified independence. He did go back to bed and was able to go in and out of bed with cynthia fied independence. He did have a gait belt to lift the right leg in bed. With occupational therapy, he was independent with bed mobility in reclined position, sitting at edge of bed, independent upper and lower body dressing, donning and doffing shoes, independent with showering tasks of toileting, i ndependent with oral hygiene and grooming. Assessment And Plan: Mr. Balderas is a 75-year-old patient in rehabilitation unit with a right total knee arthroplasty from right knee arthritis. Still has some mild decreased mobility, decreased phys ical functioning, dyslipidemia, iron deficiency, risk of deep vein thrombus, moderate pain, right kne e and lower extremity swelling. His plan will be to continue with physical and occupational therapy 3 hours a day, 5 of 7 days. The Eliquis 2.5 mg twice daily for DVT prophylaxis, aspirin 81 mg daily for stroke risk reduction, Coreg for heart rate and blood pressure control, Tylenol for pain. He has Fergon for his iron deficiency, has Claritin for seasonal allergies, milk of magnesia for muscle spa sms, Ocuvite eyedrops present. He has Paxil for depression, Crestor for dyslipidemia, Senokot for co nstipation, and B complex daily and again continue therapy as noted 3 hours a day, 5 of 7 days. GEORGE/EDWARD Voice ID: [id number] Report ID: [id number]
[2025-07-12 06:41] VITALS: BP 142/69; TEMP 98
== END 2025-07-12 09:15 | disposition home health service (06) | DRG 561 ==
LOC: 5TH 23:13
PROVIDERS: ADMIT Psychiatry & Neurology Neurology with Special Qualifications in Child Neurology; ATTEND Psychiatry & Neurology Neurology with Special Qualifications in Child Neurology
DX: Z47.1 Aftercare following joint replacement surgery (principal); M62.838 Other muscle spasm; Z96.653 Presence of artificial knee joint, bilateral; I25.10 Atherosclerotic heart disease of native coronary artery without angina pectoris; I10 Essential (primary) hypertension; E78.5 Hyperlipidemia, unspecified; K59.00 Constipation, unspecified; J30.2 Other seasonal allergic rhinitis; R11.0 Nausea; F32.A Depression, unspecified; Z95.5 Presence of coronary angioplasty implant and graft
CPT/HCPCS: 36415; 74018; 80048; 81003; 82040; 83735; 84134; 85025; 97110; 97112; 97116; 97161; 97165; 97530